=== PATIENT | female | born 1955 | race Caucasian/White ===

== ENCOUNTER 2018-10-15 09:40 | Outpatient (CLI) | payer OTHER ==
[2018-10-15 11:16] LABS: Hematocrit 42.7 % (30.3-42.9); Hemoglobin 14.6 gm/dl (10.1-14.3); Mean Corpuscular HGB Conc 34 % (30-34); Mean Corpuscular Volume 88 fl (79-97); Platelet Count 312 K/mm3 (140-440); Red Blood Count 4.87 M/mm3 (3.65-5.03)
[2018-10-15 11:31] LABS: Alanine Aminotransferase 18 units/L (7-56); Albumin 4.5 g/dL (3.9-5); BUN/Creatinine Ratio 17; Blood Urea Nitrogen 10 mg/dL (7-17); Calcium 9.9 mg/dL (8.4-10.2); Chol/HDL Ratio 5.13 %; HDL Cholesterol 53 mg/dL (40-59); Hemolysis Index 2; LDL Cholesterol,Direct 200 mg/dL (50-130)
== END 2018-10-15 09:41 | disposition home or self-care (01) ==
LOC: LAB 09:40
PROVIDERS: ATTEND Internal Medicine
DX: Z00.01 Encounter for general adult medical examination with abnormal findings (principal); I10 Essential (primary) hypertension; R73.9 Hyperglycemia, unspecified
CPT/HCPCS: 36415; 80053; 80061; 82306; 82607; 83036; 84443; 85027

== ENCOUNTER 2019-02-15 08:30 | Outpatient (CLI) | payer OTHER ==
[2019-02-15 11:33] LABS: Chol/HDL Ratio 3.55 %
[2019-02-18 12:45] LABS: Vitamin D, 25-OH, D2 <4 ng/mL
== END 2019-02-15 08:31 | disposition home or self-care (01) ==
LOC: LAB 08:30
PROVIDERS: ATTEND Internal Medicine
DX: E78.5 Hyperlipidemia, unspecified (principal); R73.03 Prediabetes; E55.9 Vitamin D deficiency, unspecified
CPT/HCPCS: 36415; 80061; 82306; 83036

== ENCOUNTER 2019-05-31 10:07 | Day surgery (SDC) | payer OTHER ==
[~2019-05-31 10:07] MED LIST: SODIUM CHLORIDE 0.9% 1000 ML 1,000 ML IV SCH
--- NOTE | 2019-05-31 10:59 | Anesthesia Consultation ---
Anesthesia Consult and Med Hx Date of service: 05/31/19 - Airway Anesthetic Teeth Evaluation: Good ROM Head & Neck: Adequate Mental/Hyoid Distance: Adequate Mallampati Class: Class II Intubation Access Assessment: Good - Pre-Operative Health Status ASA Pre-Surgery Classification: ASA2 Proposed Anesthetic Plan: MAC - Pulmonary Hx Smoking: No Hx Asthma: No Hx Respiratory Symptoms: No SOB: No COPD: No Home Oxygen Therapy: No Hx Pneumonia: No Hx Sleep Apnea: Yes - Cardiovascular System Hx Hypertension: Yes Hx Coronary Artery Disease: No Hx Heart Attack/AMI: No Hx Angina: No Hx Percutaneous Transluminal Coronary Angioplasty (PTCA): No Hx Cardia Arrhythmia: No Hx Pacemaker: No Hx Internal Defibrillator: No Hx Valvular Heart Disease: No Hx Heart Murmur: No Hx Peripheral Vascular Disease: No - Central Nervous System Hx Neuromuscular Disorder: No Hx Seizures: No CVA: No Hx Back Pain: No Hx Psychiatric Problems: No - Gastrointestinal Hx Ulcer: No Hx Gastroesophageal Reflux Disease: No - Endocrine Hx Renal Disease: No Hx End Stage Renal Disease: No Hx Cirrhosis: No Hx Liver Disease: No Hx Insulin Dependent Diabetes: No Hx Non-Insulin Dependent Diabetes: No Hx Thyroid Disease: No Hx Hypothyroidism: No Hx Hyperthyroidism: No - Hematic Hx Anemia: No Hx Sickle Cell Disease: No - Other Systems Hx Alcohol Use: No Hx Substance Use: No Hx Cancer: No Hx Obesity: Yes
--- NOTE | 2019-05-31 11:00 | Anesthesia Day of Surgery ---
Anesthesia Day of Surgery - Day of Surgery Patient Examined: Yes Patient H&P Reviewed: Yes Patient is NPO: Yes Beta Blockers: Yes
[2019-05-31] MEDS ORDERED: LIDOCAINE MPF (2%) 20 MG/1 ML VIAL 5 ML ONE (12:00)
[2019-05-31] MEDS ORDERED: PROPOFOL 200 MG/20 ML VIAL IV ONE ×2 (12:45)
--- NOTE | 2019-05-31 13:09 | Short Stay Summary ---
Short Stay Documentation Date of service: 05/31/19 Narrative H&P: The patient presents for her first screening colonoscopy. Average risk profile. - History Past Medical History: hypertension, hyperlipidemia Past Surgical History: Other (tubal ligation) Social history: no significant social history, no smoking, no alcohol abuse - Allergies and Medications Current Medications: Allergies No Known Allergies Allergy (Unverified 05/30/19 15:35) Home Medications Medication Instructions Recorded Confirmed Last Taken Type Atenolol 25 mg PO DAILY 05/30/19 05/30/19 05/31/19 06:00 History Lisinopril 20 mg PO DAILY 05/30/19 05/30/19 05/31/19 06:00 History Simvastatin 05/30/19 Unknown History Active Medications Sodium Chloride (Nacl 0.9% 1000 Ml) 1,000 mls @ 50 mls/hr IV DIRECT SHAR Last Admin: 05/31/19 12:15 Dose: 50 mls/hr Documented by: - Physical exam General appearance: no acute distress, well-nourished Integumentary: no rash, no growths, no abnormal pigmentation HEENT: Atraumatic, PERRLA, EOMI, Mucous membr. moist/pink Lungs: Clear to auscultation, Normal air movement Breasts: deferred Heart: Regular rate, Normal S1, Normal S2, No murmurs Gastrointestinal: normoactive bowel sounds, no tenderness, no distended, no masses, no guarding, no organomegaly Female Genitourinary: deferred Rectal Exam: normal exam-external/orifice, normal rectal tone, no mass Extremities: no ischemia, pulses intact, pulses symmetrical, No edema, normal temperature, normal color, Full ROM Neurological: Normal gait, Normal speech, Strength at 5/5 X4 ext, Normal tone, Sensation intact, Cranial nerves 3-12 NL - Brief post op/procedure progress note Date of procedure: 05/31/19 Findings: see dictation Estimated blood loss: none Pathology: none Condition: stable - Disposition Condition at discharge: Good Disposition: DC-01 TO HOME OR SELFCARE - Discharge Diagnoses (1) Colon cancer screening Status: Acute Short Stay Discharge Plan Activity: other (no driving for 24 hours) Weight Bearing Status: Weight Bear as Tolerated Diet: regular Follow up with: WILLIAM ANDERSON MD [Primary Care Provider] - 7 Days
--- NOTE | 2019-05-31 13:11 | Operative Report ---
Operative Report Operative Report: Date of procedure: 05/31/2019 Preprocedure diagnosis: Cancer screening, no prior studies. Average risk. Post procedure diagnosis: Moderate pancolonic diverticulosis Procedure: Colonoscopy to the cecum Endoscopist: Dr. Doll Anesthesia: Monitored anesthesia care per anesthesia department Estimated blood loss: 0 Medications: Monitored anesthesia care. See separate report by anesthesia for details. After careful discussion of the nature and purpose of the procedure as well as details of the technique risks benefits and alternatives the patient gave consent. Please see recent history and physical from the office. The patient was placed in the left lateral decubitus position and medicated per anesthesia. A rectal exam was performed sphincter tone was normal there were no masses palpable. The Olympus colonoscope was passed transanally and advanced under continuous direct vision without difficulty to the cecum. The colon was well prepared. The cecum was normal. The ascending colon healed a few scattered diverticula but otherwise was normal. The transverse colon, descending colon, and sigmoid colon revealed moderate diverticulosis. The rectum was normal on forward and retroflexed views. The procedure was well-tolerated overall and the patient was observed in recovery. Conclusions: Moderate pancolonic diverticulosis. Plan: Repeat colonoscopy in 10 years, sooner if clinically indicated. Signed electronically: Sandeep Doll M.D.
[2019-05-31 13:43] VITALS: BP 118/69
--- NOTE | 2019-05-31 13:55 | Post Anesthesia Evaluation ---
- Post Anesthesia Evaluation Patient Participated: Yes Airway Patent: Yes Stable Respiratory Function: Yes Nausea/Vomiting: No Temp > 96.8F: Yes Pain Manageable: Yes Adequeate Hydration: Yes Anesthesia Complications: No Block Receding Appropriately: Not Applicable Patient on Ventilator: No
== END 2019-05-31 10:08 | disposition home or self-care (01) ==
LOC: GIO 10:07
PROVIDERS: ATTEND Internal Medicine Gastroenterology
DX: Z12.11 Encounter for screening for malignant neoplasm of colon (principal); K57.30 Diverticulosis of large intestine without perforation or abscess without bleeding; I10 Essential (primary) hypertension; E78.5 Hyperlipidemia, unspecified; G47.30 Sleep apnea, unspecified; E66.9 Obesity, unspecified; Z98.51 Tubal ligation status; Z98.890 Other specified postprocedural states; Z79.899 Other long term (current) drug therapy
CPT/HCPCS: 45378; J2704; J7030

== ENCOUNTER 2019-07-27 11:32 | Outpatient (CLI) | payer OTHER ==
[2019-07-27 12:28] LABS: Chol/HDL Ratio 3.16 %
[2019-07-30 15:30] LABS: Vitamin D, 25-OH, D2 <4 ng/mL
== END 2019-07-27 11:33 | disposition home or self-care (01) ==
LOC: LAB 11:32
PROVIDERS: ATTEND Internal Medicine
DX: R73.9 Hyperglycemia, unspecified (principal); R73.03 Prediabetes; E78.5 Hyperlipidemia, unspecified; E55.9 Vitamin D deficiency, unspecified
CPT/HCPCS: 36415; 80061; 82306; 83036

== ENCOUNTER 2019-12-17 11:03 | Observation (INO) | payer OTHER ==
[2019-12-17] MEDS ORDERED: ASPIRIN 325 MG TAB PO ONE (11:10)
--- NOTE | 2019-12-17 11:54 | XRay Report ---
CHEST 2 VIEWS INDICATION: Chest Pain. COMPARISON: none FINDINGS: Support devices: None. Heart: Within normal limits. Lungs: No acute air space or interstitial disease. Pleura: No significant pleural effusion. No pneumothorax. Additional findings: None. IMPRESSION: 1. No acute findings. Signer Name: Deni Mares MD Signed: 12/17/2019 11:49 AM Workstation Name: [id number]
[2019-12-17 12:30] LABS: Basophils % (Auto) 0.5 % (0.0-1.8); Eosinophils # (Auto) 0.2 K/mm3 (0.0-0.4); Eosinophils % (Auto) 4.2 % (0.0-4.3); Hemoglobin 14.4 gm/dl (10.1-14.3); Lymphocytes # (Auto) 1.8 K/mm3 (1.2-5.4); Lymphocytes % (Auto) 30.4 % (13.4-35.0); Mean Corpuscular HGB Conc 34 % (30-34); Mean Corpuscular Volume 87 fl (79-97); Monocytes # (Auto) 0.3 K/mm3 (0.0-0.8); Monocytes % (Auto) 5.9 % (0.0-7.3); Platelet Count 252 K/mm3 (140-440); Red Blood Count 4.81 M/mm3 (3.65-5.03)
[2019-12-17 12:37] LABS: INR 1.06 (0.87-1.13)
[2019-12-17 12:38] LABS: Partial Thromboplastin Time 33.7 Sec. (24.2-36.6)
[2019-12-17 12:44] LABS: BUN/Creatinine Ratio 13; Blood Urea Nitrogen 8 mg/dL (7-17); Calcium 9.8 mg/dL (8.4-10.2); Hemolysis Index 24
[2019-12-17] MEDS ORDERED: MORPHINE 4 MG/1 ML INJ IV ONE (14:06)
[2019-12-17] MEDS ORDERED: ONDANSETRON 4 MG/2 ML INJ IV ONE (14:06)
--- NOTE | 2019-12-17 14:06 | Emergency Department Report ---
ED Chest Pain HPI - General Chief Complaint: Chest Pain Stated Complaint: CHEST PAIN Time Seen by Provider: 12/17/19 13:04 Source: patient Mode of arrival: Ambulatory Limitations: No Limitations - History of Present Illness Initial Comments: Patient is 64 years old female with history of hypertension and hyperlipidemia. Patient presented to the ER complaining of left-sided chest pain, pressure in nature with radiation to the left upper extremity and to her neck. Patient described her pain as 6 out of 10. Patient denied any fever, chills, cough or shortness of breath. Patient stated that she never had any symptoms like this before. MD Complaint: chest pain -: Last night Onset: during rest Pain Location: left chest Pain Radiation: LUE, neck Severity: moderate Severity scale (0 -10): 6 Quality: pressure Consistency: intermittent - Related Data Home Medications Medication Instructions Recorded Confirmed Last Taken Atenolol 25 mg PO DAILY 05/30/19 05/30/19 05/31/19 06:00 Lisinopril 20 mg PO DAILY 05/30/19 05/30/19 05/31/19 06:00 Simvastatin 05/30/19 Unknown Allergies Allergy/AdvReac Type Severity Reaction Status Date / Time No Known Allergies Allergy Unverified 05/30/19 15:35 Heart Score - HEART Score History: Moderately suspicious EKG: Non-specific Age: 45-65 Risk factors: > 3 risk factors or hx of atherosclerotic disease Troponin: < normal limit HEART Score: 5 - Critical Actions Critical Actions: 4-6 pts:12-16.6% risk of adverse cardiac event. Should be admitted ED Review of Systems ROS: Stated complaint: CHEST PAIN Other details as noted in HPI Comment: All other systems reviewed and negative Constitutional: denies: chills, fever Respiratory: denies: cough, shortness of breath, SOB with exertion, SOB at rest, wheezing Cardiovascular: chest pain. denies: palpitations, dyspnea on exertion, orthopnea Gastrointestinal: denies: abdominal pain, nausea, vomiting, diarrhea, constipation, hematemesis, melena, hematochezia Genitourinary: denies: urgency Musculoskeletal: denies: back pain Neurological: denies: headache, weakness ED Past Medical Hx - Past Medical History Previous Medical History?: Yes Hx Hypertension: Yes Hx Heart Attack/AMI: No Hx Liver Disease: No Hx Renal Disease: No Hx Sickle Cell Disease: No Hx Seizures: No Hx Asthma: No Hx COPD: No - Surgical History Past Surgical History?: No Hx Pacemaker: No Hx Internal Defibrillator: No - Social History Smoking Status: Never Smoker Substance Use Type: None - Medications Home Medications: Home Medications Medication Instructions Recorded Confirmed Last Taken Type Atenolol 25 mg PO DAILY 05/30/19 05/30/19 05/31/19 06:00 History Lisinopril 20 mg PO DAILY 05/30/19 05/30/19 05/31/19 06:00 History Simvastatin 05/30/19 Unknown History ED Physical Exam - General Limitations: No Limitations General appearance: alert, in no apparent distress - Head Head exam: Present: atraumatic, normocephalic, normal inspection - Eye Eye exam: Present: normal appearance - ENT ENT exam: Present: normal exam, normal orophraynx, mucous membranes moist - Neck Neck exam: Present: normal inspection, full ROM. Absent: tenderness, meningismus, lymphadenopathy, thyromegaly - Respiratory Respiratory exam: Present: normal lung sounds bilaterally - Cardiovascular Cardiovascular Exam: Present: regular rate, normal rhythm, normal heart sounds - GI/Abdominal GI/Abdominal exam: Present: soft, normal bowel sounds. Absent: distended, tenderness, guarding, rebound, rigid, organomegaly, mass, bruit, pulsatile mass, hernia - Extremities Exam Extremities exam: Present: normal inspection, full ROM, normal capillary refill. Absent: pedal edema, calf tenderness - Back Exam Back exam: Present: normal inspection, full ROM. Absent: CVA tenderness (R), CVA tenderness (L) - Neurological Exam Neurological exam: Present: alert, oriented X3, CN II-XII intact. Absent: motor sensory deficit - Psychiatric Psychiatric exam: Present: normal mood - Skin Skin exam: Present: warm, intact, normal color ED Course Vital Signs 12/17/19 11:06 Temperature 98.1 F Pulse Rate 77 Respiratory 18 Rate Blood Pressure 198/89 O2 Sat by Pulse 96 Oximetry ED Medical Decision Making - Lab Data Result diagrams: 12/17/19 11:47 12/17/19 11:42 - EKG Data -: EKG Interpreted by Sd EKG shows normal: sinus rhythm Rate: normal - EKG Data Interpretation: no acute changes - Radiology Data Radiology results: report reviewed - Medical Decision Making Patient is 64 years old female with history of hypertension and hyperlipidemia. Patient presented to the ER complaining of left-sided chest pain, pressure in nature with radiation to the left upper extremity and to her neck. Patient described her pain as 6 out of 10. Patient denied any fever, chills, cough or shortness of breath. Patient stated that she never had any symptoms like this before. EKG showed no ST elevation. Chest x-ray is unremarkable. Labs reviewed and is unremarkable including the first set of troponin. Patient received aspirin. Patient symptoms is typical. Patient discussed with Dr. Alarcon, he agreed to admit the patient to medical service for further management. Critical Care Time: Yes Critical care time in (mins) excluding proc time.: 30 Critical care attestation.: If time is entered above; I have spent that time in minutes in the direct care of this critically ill patient, excluding procedure time. ED Disposition Clinical Impression: Unstable angina, Chest pain Disposition: OP ADMIT IP TO THIS HOSP Is pt being admited?: Yes Condition: Stable Instructions: Angina (ED), Chest Pain (ED) Referrals: PRIMARY CARE, [Primary Care Provider] - 3-5 Days
[2019-12-17] MEDS ORDERED: ASPIRIN 325 MG TAB ONE (14:22)
[2019-12-17] MEDS ORDERED: MORPHINE 2 MG/1 ML INJ ONE (14:23)
[2019-12-17 14:53] LABS: Hematocrit 41.6 % (30.3-42.9); Hemoglobin 14.3 gm/dl (10.1-14.3)
[2019-12-17] MEDS ORDERED: HEPARIN/ 0.45% NACL DRIP 25,000 UNIT/500 ML BAG IV SCH (15:00)
[2019-12-17 15:01] LABS: INR 1.06 (0.87-1.13)
[2019-12-17 15:02] LABS: Partial Thromboplastin Time 32.3 Sec. (24.2-36.6)
[2019-12-17] MEDS ORDERED: ACETAMINOPHEN 325 MG TAB PO PRN ×2 (20:13→22:17)
--- NOTE | 2019-12-17 22:08 | History and Physical Report ---
History of Present Illness Date of examination: 12/17/19 Date of admission: 12/17/19 14:08 Chief complaint: Chest pain since AM History of present illness: 64 years old female with history of hypertension and hyperlipidemia comes in for chest pain since AM.Chest pain L precordial with radiation to L deanne L side of her neck.Chest pain is dull and about 6 on a scale of 1 to 10.No diaphoresis or palpitations.No sob or palpitations.Never had a stress test.No exacerbating or relieving factors. - Past Medical History Previous Medical History?: Yes Hypertension HLD - Surgical History Past Surgical History?: No Hx Pacemaker: No Hx Internal Defibrillator: No - Social History Smoking Status: Never Smoker Substance Use Type: None -Family History HTN - Medications Home Medications: Home Medications Medication Instructions Recorded Confirmed Last Taken Type Atenolol 25 mg PO DAILY 05/30/19 05/30/19 05/31/19 06:00 History Lisinopril 20 mg PO DAILY 05/30/19 05/30/19 05/31/19 06:00 History Simvastatin 05/30/19 Unknown History Review of Systems ROS: Stated complaint: CHEST PAIN Other details as noted in HPI Comment: All other systems reviewed and negative Constitutional: denies: chills, fever Respiratory: denies: cough, shortness of breath, SOB with exertion, SOB at rest, wheezing Cardiovascular: chest pain. denies: palpitations, dyspnea on exertion, orthopnea Gastrointestinal: denies: abdominal pain, nausea, vomiting, diarrhea, constipation, hematemesis, melena, hematochezia Genitourinary: denies: urgency Musculoskeletal: denies: back pain Neurological: denies: headache, weakness Medications and Allergies Allergies Allergy/AdvReac Type Severity Reaction Status Date / Time No Known Allergies Allergy Unverified 05/30/19 15:35 Home Medications Medication Instructions Recorded Confirmed Last Taken Type Atenolol 25 mg PO DAILY 05/30/19 12/17/19 05/31/19 06:00 History Lisinopril 40 mg PO DAILY 05/30/19 12/17/19 05/31/19 06:00 History Active Meds: Active Medications Acetaminophen (Tylenol) 650 mg PO Q6H PRN PRN Reason: Pain, Mild (1-3) Last Admin: 12/17/19 20:38 Dose: 650 mg Documented by: Heparin Sodium/Sodium Chloride (Heparin/ 0.45% Nacl-25,000 Unit/500 Ml) 25,000 unit in 500 mls @ 18 mls/hr IV TITRATE SHAR; Protocol Last Titration: 12/17/19 21:17 Dose: 900 units/hr, 18 mls/hr Documented by: Exam - Constitutional Vitals: Temp Pulse Resp BP Pulse Ox 97.3 F L 60 16 141/77 97 12/17/19 19:49 12/17/19 19:49 12/17/19 19:49 12/17/19 19:49 12/17/19 19:49 General appearance: Present: no acute distress, well-nourished - EENT Eyes: Present: PERRL ENT: hearing intact, clear oral mucosa - Neck Neck: Present: supple, normal ROM - Respiratory Respiratory effort: normal Respiratory: bilateral: CTA - Cardiovascular Heart rate: 78 Rhythm: regular Heart Sounds: Present: S1 & S2. Absent: rub, click - Extremities Extremities: no ischemia, pulses intact, pulses symmetrical, No edema Peripheral Pulses: within normal limits - Abdominal General gastrointestinal: Present: soft, non-tender, non-distended, normal bowel sounds Female genitourinary: Present: normal - Rectal Rectal Exam: deferred - Integumentary Integumentary: Present: clear, warm, dry - Musculoskeletal Musculoskeletal: gait normal, strength equal bilaterally - Psychiatric Psychiatric: appropriate mood/affect, intact judgment & insight - Neurologic Neurologic: CNII-XII intact, moves all extremities - Allied Health Allied health notes reviewed: nursing, case management HEART Score - HEART Score History: Highly suspicious EKG: Non-specific Age: 45-65 Risk factors: > 3 risk factors or hx of atherosclerotic disease Troponin: Troponin T < 0.010 ng/mL (0.00-0.029) 12/17/19 16:54 Troponin: < normal limit HEART Score: 6 - Critical Actions Critical Actions: 4-6 pts:12-16.6% risk of adverse cardiac event. Should be admitted Results - Labs CBC & Chem 7: 12/17/19 14:21 12/17/19 11:42 Labs: Laboratory Last Values WBC 5.8 K/mm3 (4.5-11.0) 12/17/19 11:47 RBC 4.81 M/mm3 (3.65-5.03) 12/17/19 11:47 Hgb 14.3 gm/dl (10.1-14.3) 12/17/19 14:21 Hct 41.6 % (30.3-42.9) 12/17/19 14:21 MCV 87 fl (79-97) 12/17/19 11:47 MCH 30 pg (28-32) 12/17/19 11:47 MCHC 34 % (30-34) 12/17/19 11:47 RDW 14.0 % (13.2-15.2) 12/17/19 11:47 Plt Count 255 K/mm3 (140-440) 12/17/19 14:21 Lymph % (Auto) 30.4 % (13.4-35.0) 12/17/19 11:47 [place] % (Auto) 5.9 % (0.0-7.3) 12/17/19 11:47 Eos % (Auto) 4.2 % (0.0-4.3) 12/17/19 11:47 Baso % (Auto) 0.5 % (0.0-1.8) 12/17/19 11:47 Lymph # 1.8 K/mm3 (1.2-5.4) 12/17/19 11:47 [place] # 0.3 K/mm3 (0.0-0.8) 12/17/19 11:47 Eos # 0.2 K/mm3 (0.0-0.4) 12/17/19 11:47 Baso # 0.0 K/mm3 (0.0-0.1) 12/17/19 11:47 Seg Neutrophils % 59.0 % (40.0-70.0) 12/17/19 11:47 Seg Neutrophils # 3.4 K/mm3 (1.8-7.7) 12/17/19 11:47 PT 13.6 Sec. (12.2-14.9) 12/17/19 14:21 INR 1.06 (0.87-1.13) 12/17/19 14:21 APTT 32.3 Sec. (24.2-36.6) 12/17/19 14:21 Heparin Anti-Xa Level 0.42 U.I./ml (0.3-0.7) 12/17/19 20:33 Sodium 140 mmol/L (137-145) 12/17/19 11:42 Potassium 4.6 mmol/L (3.6-5.0) 12/17/19 11:42 Chloride 104.3 mmol/L (98-107) 12/17/19 11:42 Carbon Dioxide 23 mmol/L (22-30) 12/17/19 11:42 Anion Gap 17 mmol/L 12/17/19 11:42 BUN 8 mg/dL (7-17) 12/17/19 11:42 Creatinine 0.6 mg/dL (0.7-1.2) L 12/17/19 11:42 Estimated GFR > 60 ml/min 12/17/19 11:42 BUN/Creatinine Ratio 13 % 12/17/19 11:42 Glucose 100 mg/dL (65-100) 12/17/19 11:42 Calcium 9.8 mg/dL (8.4-10.2) 12/17/19 11:42 Troponin T < 0.010 ng/mL (0.00-0.029) 12/17/19 16:54 Lipase 36 units/L (13-60) 12/17/19 14:21 Short CBC 12/17/19 12/17/19 Range/Units 11:47 14:21 WBC 5.8 (4.5-11.0) K/mm3 Hgb 14.4 H 14.3 (10.1-14.3) gm/dl Hct 42.0 41.6 (30.3-42.9) % Plt Count 252 255 (140-440) K/mm3 BMP 12/17/19 11:42 Sodium 140 Potassium 4.6 Chloride 104.3 Carbon Dioxide 23 BUN 8 Creatinine 0.6 L Glucose 100 Calcium 9.8 Cardiac Enzymes 12/17/19 12/17/19 12/17/19 Range/Units 11:42 14:21 16:54 Troponin T < 0.010 < 0.010 < 0.010 (0.00-0.029) ng/mL - Imaging and Cardiology EKG: report reviewed (Sinus rhythm,PVC's 78/min) Chest x-ray: report reviewed (NAF) Plasencia/IV: Voiding Method Toilet IV Catheter Type [Right Hand] INT / Saline Lock Assessment and Plan Advance Directives: Yes (Full code) VTE prophylaxis?: Chemical Plan of care discussed with patient/family: Yes - Patient Problems (1) Chest pain Current Visit: Yes Status: Resolved Plan to address problem: Chest pain protocol Diff diagnosis--costochondritis,and GERD Serial Troponins and Stress test in AM Or get Stress test as Outpatient (2) HTN (hypertension) Current Visit: Yes Status: Chronic Qualifiers: Hypertension type: essential hypertension Qualified Code(s): I10 - Cristobal brody (primary) hypertension Plan to address problem: Cont antihypertensives BP controlled Adjust meds as necessary (3) HLD (hyperlipidemia) Current Visit: Yes Status: Chronic Qualifiers: Hyperlipidemia type: mixed hyperlipidemia Qualified Code(s): E78.2 - Mixed hyperlipidemia Plan to address problem: Cont statins (4) DVT prophylaxis Current Visit: Yes Status: Acute Plan to address problem: On Lovenox and GI prophylaxis
[2019-12-17] MEDS ORDERED: ONDANSETRON 4 MG/2 ML INJ IV PRN (22:17)
[2019-12-17] MEDS ORDERED: oxyCODONE /ACETAMINOPHEN 5-325MG TAB PO PRN (22:17)
[2019-12-17] MEDS ORDERED: FAMOTIDINE 20 MG/2 ML INJ IV SCH (23:00)
--- NOTE | 2019-12-18 09:20 | Progress Note ---
Assessment and Plan Assessment and plan: Chest pain Chest pain protocol Serial Troponins neg cardiology consulted to evaluate Hypertension Cont antihypertensives BP controlled Adjust meds as necessary Hyperlipidemia Cont statins DVT prophylaxis On Lovenox and GI prophylaxis History Interval history: Chest pain Hospitalist Physical - Physical exam Narrative exam: GEN: Not in acute distress, obese, lying in bed HEENT: Normocephalic, atraumatic, Neck: supple, No JVD Lungs: Clear to auscultation bilaterally, heart;S1 and S2 reg, no murmurs, rubs or gallop Abd:soft, non tender, non distended, normal bowel sounds, Ext: No edema, no clubbing, no cyanosis, Neuro: Awake,alert,oriented X3 , no focal signs, - Constitutional Vitals: Temp Pulse Resp BP Pulse Ox 97.7 F 59 L 18 128/74 98 12/18/19 05:34 12/18/19 05:34 12/18/19 05:34 12/18/19 05:34 12/18/19 05:34 General appearance: Present: no acute distress, well-nourished HEART Score - HEART Score EKG: Non-specific Age: 45-65 Risk factors: > 3 risk factors or hx of atherosclerotic disease Troponin: Troponin T < 0.010 ng/mL (0.00-0.029) 12/17/19 16:54 Troponin: < normal limit - Critical Actions Critical Actions: 4-6 pts:12-16.6% risk of adverse cardiac event. Should be admitted Results - Labs CBC & Chem 7: 12/17/19 14:21 12/17/19 11:42 Labs: Laboratory Last Values WBC 5.8 K/mm3 (4.5-11.0) 12/17/19 11:47 RBC 4.81 M/mm3 (3.65-5.03) 12/17/19 11:47 Hgb 14.3 gm/dl (10.1-14.3) 12/17/19 14:21 Hct 41.6 % (30.3-42.9) 12/17/19 14:21 MCV 87 fl (79-97) 12/17/19 11:47 MCH 30 pg (28-32) 12/17/19 11:47 MCHC 34 % (30-34) 12/17/19 11:47 RDW 14.0 % (13.2-15.2) 12/17/19 11:47 Plt Count 255 K/mm3 (140-440) 12/17/19 14:21 Lymph % (Auto) 30.4 % (13.4-35.0) 12/17/19 11:47 [place] % (Auto) 5.9 % (0.0-7.3) 12/17/19 11:47 Eos % (Auto) 4.2 % (0.0-4.3) 12/17/19 11:47 Baso % (Auto) 0.5 % (0.0-1.8) 12/17/19 11:47 Lymph # 1.8 K/mm3 (1.2-5.4) 12/17/19 11:47 [place] # 0.3 K/mm3 (0.0-0.8) 12/17/19 11:47 Eos # 0.2 K/mm3 (0.0-0.4) 12/17/19 11:47 Baso # 0.0 K/mm3 (0.0-0.1) 12/17/19 11:47 Seg Neutrophils % 59.0 % (40.0-70.0) 12/17/19 11:47 Seg Neutrophils # 3.4 K/mm3 (1.8-7.7) 12/17/19 11:47 PT 13.6 Sec. (12.2-14.9) 12/17/19 14:21 INR 1.06 (0.87-1.13) 12/17/19 14:21 APTT 32.3 Sec. (24.2-36.6) 12/17/19 14:21 Heparin Anti-Xa Level 0.79 U.I./ml (0.3-0.7) H 12/18/19 02:19 Sodium 140 mmol/L (137-145) 12/17/19 11:42 Potassium 4.6 mmol/L (3.6-5.0) 12/17/19 11:42 Chloride 104.3 mmol/L (98-107) 12/17/19 11:42 Carbon Dioxide 23 mmol/L (22-30) 12/17/19 11:42 Anion Gap 17 mmol/L 12/17/19 11:42 BUN 8 mg/dL (7-17) 12/17/19 11:42 Creatinine 0.6 mg/dL (0.7-1.2) L 12/17/19 11:42 Estimated GFR > 60 ml/min 12/17/19 11:42 BUN/Creatinine Ratio 13 % 12/17/19 11:42 Glucose 100 mg/dL (65-100) 12/17/19 11:42 Hemoglobin A1c 5.6 % (4-6) 12/18/19 02:19 Calcium 9.8 mg/dL (8.4-10.2) 12/17/19 11:42 Troponin T < 0.010 ng/mL (0.00-0.029) 12/17/19 16:54 Lipase 36 units/L (13-60) 12/17/19 14:21 Plasencia/IV: Voiding Method Toilet IV Catheter Type [Right Hand] INT / Saline Lock Active Medications - Current Medications Current Medications: Generic Name Dose Route Start Last Admin Trade Name Freq PRN Reason Stop Dose Admin Acetaminophen 650 mg 12/17/19 22:17 Tylenol PO Q4H PRN Pain MILD(1-3)/Fever >100.5/COLÓN Atenolol 25 mg 12/18/19 10:00 Tenormin PO DAILY [facility] Enoxaparin Sodium 40 mg 12/18/19 22:00 Enoxaparin SUB-Q QDAY@2200 [facility] Famotidine 20 mg 12/17/19 23:00 12/17/19 23:07 Pepcid IV 20 mg BID SHAR Administration Hydromorphone HCl 0.5 mg 12/17/19 22:17 Dilaudid IV Q3H PRN Pain , Severe (7-10) Lisinopril 40 mg 12/18/19 10:00 Zestril PO DAILY [facility] Ondansetron HCl 4 mg 12/17/19 22:17 Zofran IV Q8H PRN Nausea And Vomiting Oxycodone/Acetaminophen 1 tab 12/17/19 22:17 Percocet 5/325 PO Q6H PRN Pain, Moderate (4-6) Sodium Chloride 10 ml 12/18/19 10:00 Sodium Chloride Flush Syringe 10 Ml IV BID SHAR Sodium Chloride 10 ml 12/17/19 22:17 Sodium Chloride Flush Syringe 10 Ml IV PRN PRN LINE FLUSH
[2019-12-18] MEDS ORDERED: NON-FORMULARY EACH (Lisinopril 40 MG) PO SCH (10:00)
[2019-12-18] MEDS ORDERED: NON-FORMULARY EACH (Atenolol 25 MG) PO SCH (10:00)
[2019-12-18] MEDS: atenoloL 25 MG TAB PO SCH (11:04)
[2019-12-18] MEDS: FAMOTIDINE 20 MG TAB PO SCH ×2 (11:04→21:12)
[2019-12-18] MEDS: LISINOPRIL 40 MG TAB PO SCH (11:11)
--- NOTE | 2019-12-18 12:20 | Consultation ---
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 She describes the chest pain as a heaviness and is associated with lightheaded dizziness and diaphoresis. The patient has a past medical history of hypertension and hypercholesterolemia. In the emergency department a twelve-lead EKG revealed normal sinus rhythm with no acute ST segment changes. The patient's chest x-ray was unremarkable. Cardiac enzymes were negative x3. Past History Past Medical History: hypertension, hyperlipidemia Past Surgical History: No surgical history Social history: denies: smoking, alcohol abuse, prescription drug abuse Family history: hypertension Medications and Allergies Allergies Allergy/AdvReac Type Severity Reaction Status Date / Time No Known Allergies Allergy Unverified 05/30/19 15:35 Home Medications Medication Instructions Recorded Confirmed Last Taken Type Atenolol 25 mg PO DAILY 05/30/19 12/17/19 05/31/19 06:00 History Lisinopril 40 mg PO DAILY 05/30/19 12/17/19 05/31/19 06:00 History Active Meds: Active Medications Acetaminophen (Tylenol) 650 mg PO Q4H PRN PRN Reason: Pain MILD(1-3)/Fever >100.5/COLÓN Atenolol (Tenormin) 25 mg PO DAILY [facility] Last Admin: 12/18/19 11:04 Dose: 25 mg Documented by: Enoxaparin Sodium (Enoxaparin) 40 mg SUB-Q QDAY@2200 [facility] Famotidine (Pepcid) 20 mg PO BID [facility] Last Admin: 12/18/19 11:04 Dose: 20 mg Documented by: Hydromorphone HCl (Dilaudid) 0.5 mg IV Q3H PRN PRN Reason: Pain , Severe (7-10) Lisinopril (Zestril) 40 mg PO DAILY [facility] Last Admin: 12/18/19 11:11 Dose: 40 mg Documented by: Ondansetron HCl (Zofran) 4 mg IV Q8H PRN PRN Reason: Nausea And Vomiting Oxycodone/Acetaminophen (Percocet 5/325) 1 tab PO Q6H PRN PRN Reason: Pain, Moderate (4-6) Sodium Chloride (Sodium Chloride Flush Syringe 10 Ml) 10 ml IV BID [facility] Last Admin: 12/18/19 11:05 Dose: 10 ml Documented by: Sodium Chloride (Sodium Chloride Flush Syringe 10 Ml) 10 ml IV PRN PRN PRN Reason: LINE FLUSH Review of Systems Constitutional: fatigue, weakness Ears, nose, mouth and throat: no tinnitis, no decreased hearing Breasts: deferred Cardiovascular: chest pain, lightheadedness, shortness of breath, no orthopnea, no palpitations, no edema, no syncope Respiratory: no cough, no hemoptysis Gastrointestinal: no nausea, no vomiting Genitourinary Female: no pelvic pain, no flank pain Rectal: no incontinence, no bleeding Musculoskeletal: no neck stiffness, no neck pain Integumentary: no rash, no pruritis Neurological: no head injury, no transient paralysis Physical Examination Vital Signs Temp Pulse Resp BP Pulse Ox 98.1 F 77 18 198/89 96 12/17/19 11:06 12/17/19 11:06 12/17/19 11:06 12/17/19 11:06 12/17/19 11:06 General appearance: no acute distress HEENT: Positive: PERRL Neck: Positive: neck supple, trachea midline Cardiac: Positive: Reg Rate and Rhythm Lungs: Positive: Normal Exam, clear to auscultation Neuro: Positive: Grossly Intact Abdomen: Positive: Unremarkable, Soft, Active Bowel Sounds Skin: Negative: Rash Extremities: Present: warm. Absent: edema Results 12/17/19 14:21 12/17/19 11:42 Coagulation 12/17/19 12/17/19 Range/Units 11:47 14:21 PT 13.6 13.6 (12.2-14.9) Sec. INR 1.06 1.06 (0.87-1.13) APTT 33.7 32.3 (24.2-36.6) Sec. CBC 12/17/19 12/17/19 Range/Units 11:47 14:21 WBC 5.8 (4.5-11.0) K/mm3 RBC 4.81 (3.65-5.03) M/mm3 Hgb 14.4 H 14.3 (10.1-14.3) gm/dl Hct 42.0 41.6 (30.3-42.9) % Plt Count 252 255 (140-440) K/mm3 Lymph # 1.8 (1.2-5.4) K/mm3 Mayes # 0.3 (0.0-0.8) K/mm3 Eos # 0.2 (0.0-0.4) K/mm3 Baso # 0.0 (0.0-0.1) K/mm3 Comprehensive Metabolic Panel 12/17/19 Range/Units 11:42 Sodium 140 (137-145) mmol/L Potassium 4.6 (3.6-5.0) mmol/L Chloride 104.3 (98-107) mmol/L Carbon Dioxide 23 (22-30) mmol/L BUN 8 (7-17) mg/dL Creatinine 0.6 L (0.7-1.2) mg/dL Glucose 100 (65-100) mg/dL Calcium 9.8 (8.4-10.2) mg/dL EKG interpretations - Telemetry EKG Rhythm: Sinus Rhythm Assessment and Plan 64-year-old Faroese-speaking female with a past medical history of hypertension hyperlipidemia admitted with typical chest pain. Recommend myocardial perfusion scan/stress test
[2019-12-18] MEDS ORDERED: ENOXAPARIN 40 MG/0.4 ML INJ SUB-Q SCH (22:00)
[2019-12-19 04:31] LABS: Hematocrit 40.8 % (30.3-42.9); Hemoglobin 13.9 gm/dl (10.1-14.3)
[2019-12-19] MEDS ORDERED: guaiFENesin 200 MG TAB PO PRN (05:44)
[2019-12-19] MEDS ORDERED: REGADENOSON 0.4 MG/5 ML INJ IV ONE (07:45)
[2019-12-19] MEDS: HYDROmorphone 1 MG/1 ML INJ IV PRN ×2 (09:10→14:40)
--- NOTE | 2019-12-19 10:22 | Progress Note ---
Assessment and Plan S/p lexiscan MPI stress test today which was negative. Obtain echo. Pending echo does not show any gross abnormalities, pt may discharge from cardiology standpoint. Recommend pt follow up in our office with Dr. Ratliff within 1-2 weeks of discharge ([phone]). The patient has been seen in conjunction with Dr. Jhoan Hogue who agrees with the assessment and plan of care. - Patient Problems (1) Chest pain Current Visit: Yes Status: Resolved (2) HTN (hypertension) Current Visit: Yes Status: Chronic Qualifiers: Hypertension type: essential hypertension Qualified Code(s): I10 - Essential (primary) hypertension (3) HLD (hyperlipidemia) Current Visit: Yes Status: Chronic Qualifiers: Hyperlipidemia type: mixed hyperlipidemia Qualified Code(s): E78.2 - Mixed hyperlipidemia Subjective Date of service: 12/19/19 Principal diagnosis: cp Interval history: pt for stress test. in SR on tele with isolated PVCs. Objective Last Vital Signs Temp 98.0 F 12/19/19 07:30 Pulse 59 L 12/19/19 07:30 Resp 20 12/19/19 07:30 BP 162/76 12/19/19 07:30 Pulse Ox 95 12/19/19 07:30 - Physical Examination General: No Apparent Distress HEENT: Positive: PERRL Neck: Positive: neck supple, trachea midline Cardiac: Positive: Reg Rate and Rhythm, S1/S2 Lungs: Positive: Decreased Breath Sounds Neuro: Positive: Grossly Intact Abdomen: Positive: Unremarkable, Soft, Active Bowel Sounds Skin: Negative: Rash Extremities: Present: warm. Absent: edema - Labs and Meds CBC 12/19/19 Range/Units 04:17 Hgb 13.9 (10.1-14.3) gm/dl Hct 40.8 (30.3-42.9) % Plt Count 236 (140-440) K/mm3 - Imaging and Cardiology EKG: report reviewed (Sinus rhythm,PVC's 78/min)
[2019-12-19] MEDS ORDERED: hydrALAZINE 20 MG/1 ML INJ IV PRN (11:00)
[2019-12-19] MEDS: LISINOPRIL 40 MG TAB PO SCH (15:06)
[2019-12-19] MEDS: atenoloL 25 MG TAB PO SCH (15:06)
[2019-12-19] MEDS: FAMOTIDINE 20 MG TAB PO SCH (15:06)
--- NOTE | 2019-12-19 16:13 | Discharge Summary ---
Providers - Providers Date of Admission: 12/17/19 14:08 Date of discharge: 12/19/19 Attending physician: KAYLEE MC 12/18/19 08:13 Consult to Physician [CONS] Routine Comment: Consulting Provider: SARWAT BALTAZAR Physician Instructions: Reason For Exam: Chest pain Primary care physician: [facility] Hospitalization Condition: Fair Hospital course: Patient is 64 years old female with history of hypertension and hyperlipidemia presented with chest pain. Chest pain is left sided, dull about 6 on a scale of 1 to 10. No diaphoresis or palpitations.No sob or palpitations.Never had a stress test.No exacerbating or relieving factors. She was seen and evaluated in Emergency Department and admitted to rule out acute coronary syndrome. Patient was evaluated by cardiology. Stress test done following day was negative. She was then discharged home. Chest pain determined to be non-cardiac, due to GERD. Disposition: TO HOME OR SELFCARE - Discharge Diagnoses (1) Chest pain Status: Acute Comment: Due to GERD (2) GERD (gastroesophageal reflux disease) Status: Acute (3) HLD (hyperlipidemia) Status: Chronic Qualifiers: Hyperlipidemia type: mixed hyperlipidemia Qualified Code(s): E78.2 - Mixed hyperlipidemia (4) HTN (hypertension) Status: Chronic Qualifiers: Hypertension type: essential hypertension Qualified Code(s): I10 - Essential (primary) hypertension Core Measure Documentation - Palliative Care Palliative Care/ Comfort Measures: Not Applicable - Core Measures Any of the following diagnoses?: none Exam - Constitutional Vitals: Temp Pulse Resp BP Pulse Ox 98.0 F 59 L 20 155/93 95 12/19/19 07:30 12/19/19 10:00 12/19/19 07:30 12/19/19 13:25 12/19/19 07:30 Plan Activity: advance as tolerated Diet: low fat, low cholesterol, low salt Additional Instructions: 1.Follow up with PCP in 1 week. 2.Follow up with Dr. Luna Ratliff, cardiology in 1-2 weeks. Plan of Treatment: 1.Follow up with PCP in 1 week. 2.Follow up with Dr. Luna Ratliff, cardiology in 1-2 weeks. Follow up with: PRIMARY CARE, [Primary Care Provider] - 3-5 Days Prescriptions: Famotidine [Pepcid] 20 mg PO BID #30 tablet
[2019-12-19 16:24] VITALS: BP 138/77
--- NOTE | 2019-12-20 12:46 | Treadmill Report ---
NUCLEAR STRESS TEST REFERRING PHYSICIAN: Hospitalist Service. PROTOCOL: The patient was brought to the stress lab in a postoperative state, given 10 mCi of technetium 99m at rest. The patient underwent rest imaging. The patient underwent Lexiscan stress test. At peak stress, the patient was given 26 mCi refurbish technician 99m. Shortly thereafter, the patient underwent stress imaging. Raw imaging reveals mild GI artifact, no significant motion artifact. SPECT imaging examined carefully in horizontal long axis, vertical long axis, and short axis views. There is normal homogenous uptake of radioisotope in all reported segments. No evidence of significant fixed or reversible perfusion defects suggestive of prior infarction or ischemia. Calculated ejection fraction 77%. CONCLUSIONS: 1. Normal myocardial perfusion scan without evidence of active ischemia or prior infarction. 2. Normal left ventricular systolic performance without evidence of transient ischemic dilatation or stress-induced segmental wall motion abnormalities. JOB# [id number]
== END 2019-12-19 18:51 | disposition home or self-care (01) ==
LOC: ED 11:03 → 4A 14:08 → INTOOBSV 14:08
PROVIDERS: ADMIT Internal Medicine; ATTEND Internal Medicine
DX: R07.89 Other chest pain (principal); I20.0 Unstable angina; I10 Essential (primary) hypertension; K21.9 Gastro-esophageal reflux disease without esophagitis; E78.2 Mixed hyperlipidemia; Z79.899 Other long term (current) drug therapy
CPT/HCPCS: 36415; 71046; 78452; 80048; 83036; 83690; 84484; 85014; 85018; 85025; 85049; 85520; 85610; 85730; 93005; 93017; 93306; 96365; 96366; 96372; 96375; 96376; 99291; A9502; G0378; J1170; J1644; J1650; J2270; J2405; J2785

== ENCOUNTER 2021-02-14 10:34 | Outpatient (CLI) | payer OTHER ==
[2021-02-14 11:21] LABS: Basophils % (Auto) 0.8 % (0.0-1.8); Eosinophils # (Auto) 0.1 K/mm3 (0.0-0.4); Eosinophils % (Auto) 3.2 % (0.0-4.3); Hematocrit 41.8 % (30.3-42.9); Hemoglobin 13.8 gm/dl (10.1-14.3); Lymphocytes # (Auto) 1.9 K/mm3 (1.2-5.4); Lymphocytes % (Auto) 40.8 % (13.4-35.0); Mean Corpuscular HGB Conc 33 % (30-34); Mean Corpuscular Volume 88 fl (79-97); Monocytes # (Auto) 0.3 K/mm3 (0.0-0.8); Monocytes % (Auto) 6.6 % (0.0-7.3); Platelet Count 265 K/mm3 (140-440); Red Blood Count 4.74 M/mm3 (3.65-5.03); Red Cell Distribution Width 13.9 % (13.2-15.2)
[2021-02-14 12:09] LABS: Alanine Aminotransferase 22 units/L (7-56); Albumin 4.6 g/dL (3.9-5); Blood Urea Nitrogen 13 mg/dL (7-17); Calcium 10.3 mg/dL (8.4-10.2); Chol/HDL Ratio 3.77 %; HDL Cholesterol 54 mg/dL (40-59); Hemolysis Index 2; LDL Cholesterol,Direct 137 mg/dL (50-130)
[2021-02-14 12:14] LABS: BUN/Creatinine Ratio 26
[2021-02-17 12:34] LABS: Vitamin D, 25-OH, D2 7 ng/mL
== END 2021-02-14 10:35 | disposition home or self-care (01) ==
LOC: LAB 10:34
PROVIDERS: ATTEND Internal Medicine
DX: Z00.00 Encounter for general adult medical examination without abnormal findings (principal); Z13.29 Encounter for screening for other suspected endocrine disorder; E78.5 Hyperlipidemia, unspecified; R73.03 Prediabetes; E55.9 Vitamin D deficiency, unspecified; D51.9 Vitamin B12 deficiency anemia, unspecified
CPT/HCPCS: 36415; 80053; 80061; 82306; 82607; 83036; 84443; 85025

== ENCOUNTER 2021-08-27 08:11 | Outpatient (CLI) | payer OTHER ==
[2021-08-27 09:12] LABS: Chol/HDL Ratio 4.32 %
== END 2021-08-27 08:12 | disposition home or self-care (01) ==
LOC: LAB 08:11
PROVIDERS: ATTEND Internal Medicine
DX: E11.9 Type 2 diabetes mellitus without complications (principal); E78.5 Hyperlipidemia, unspecified
CPT/HCPCS: 36415; 80061; 83036